=== PATIENT | male | born 1980 | race Hispanic/Latino ===

== ENCOUNTER 2020-09-08 07:40 | Outpatient (CLI) | payer OTHER ==
--- NOTE | 2020-09-08 13:58 | MRI ---
MRI BRAIN NONCONTRAST: DATE: 09/08/2020 HISTORY: 39-year-old male with vertigo R 42 FINDINGS: The ventricles are normal in size and configuration. A couple of punctate T2 and FLAIR hyperintensiti es in deep frontal white matter bilaterally. Nonspecific, but statistically most likely to represent minimal chronic ischemic white matter changes or migraine lesions. There is no major intra- axial signal abnormality, restricted diffusion, midline shift or any other mass effect, recent intra-axial hemorrhage, or extra-axial fluid collection. Mucosal thickening moderately throughout ferny ateral ethmoid air cells, and very mildly at frontal sinuses, sphenoid sinus, and maxillary sinuses. Flow voids are maintained in the major arteries of [place], including posterior cir culation. IMPRESSION: Essentially normal brain.
== END 2020-09-08 07:41 | disposition home or self-care (01) ==
LOC: BICMRI 07:40
PROVIDERS: ATTEND Family Medicine
DX: R42 Dizziness and giddiness (principal)
CPT/HCPCS: 70551

== ENCOUNTER 2021-03-23 09:35 | Outpatient (CLI) | payer OTHER | END 2021-03-23 09:36 | disposition home or self-care (01) | LOC: SCSMRI 09:35 | PROVIDERS: ATTEND Neurological Surgery | DX: M47.12 Other spondylosis with myelopathy, cervical region (principal); R42 Dizziness and giddiness; G95.9 Disease of spinal cord, unspecified | CPT/HCPCS: 72141; 72148 ==